=== PATIENT | male | born 1960 | race Caucasian/White ===

== ENCOUNTER 2017-05-06 12:33 | Emergency (ER) | payer MEDICAID ==
[2017-05-06 14:38] VITALS: BP 125/76
== END 2017-05-06 14:38 | disposition home or self-care (01) ==
LOC: ED 12:33
DX: M10.072 Idiopathic gout, left ankle and foot (principal); J45.901 Unspecified asthma with (acute) exacerbation; I10 Essential (primary) hypertension
CPT/HCPCS: J7512

== ENCOUNTER 2017-11-28 09:35 | Emergency (ER) | payer MEDICAID ==
[~2017-11-28] VITALS: Ht 162.6 cm; Wt 73.5 kg
[2017-11-28 09:39] VITALS: Ht 162.6 cm; Wt 73.5 kg
[2017-11-28 10:39] VITALS: BP 161/91
== END 2017-11-28 10:39 | disposition home or self-care (01) ==
LOC: ED 09:35
DX: M25.522 Pain in left elbow (principal); I10 Essential (primary) hypertension
CPT/HCPCS: J1885

== ENCOUNTER 2018-10-01 11:20 | Emergency (ER) | payer MEDICAID ==
[~2018-10-01] VITALS: Ht 157.5 cm; Wt 73.9 kg
[2018-10-01 11:31] VITALS: Ht 157.5 cm; Wt 73.9 kg
[2018-10-01 14:27] VITALS: BP 126/84
== END 2018-10-01 14:27 | disposition home or self-care (01) ==
LOC: ED 11:20
DX: J45.901 Unspecified asthma with (acute) exacerbation (principal); M10.9 Gout, unspecified; I10 Essential (primary) hypertension
CPT/HCPCS: J7512; J7613; J7644; Q0092

== ENCOUNTER 2018-10-28 12:58 | Emergency (ER) | payer MEDICAID ==
[~2018-10-28] VITALS: Ht 162.6 cm; Wt 73.5 kg
[2018-10-28 13:41] VITALS: Ht 162.6 cm; Wt 73.5 kg
[2018-10-28 15:13] VITALS: BP 134/77
== END 2018-10-28 15:14 | disposition home or self-care (01) ==
LOC: ED 12:58
DX: J45.901 Unspecified asthma with (acute) exacerbation (principal); I10 Essential (primary) hypertension; M10.9 Gout, unspecified
CPT/HCPCS: J0171; J7512; J7613; J7644

== ENCOUNTER 2018-12-01 13:38 | Emergency (ER) | payer MEDICAID ==
[~2018-12-01] VITALS: Ht 160 cm; Wt 74.8 kg
[2018-12-01 13:54] VITALS: Ht 160 cm; Wt 74.8 kg
[2018-12-01 15:19] VITALS: BP 145/86
== END 2018-12-01 15:19 | disposition home or self-care (01) ==
LOC: ED 13:38
DX: J45.901 Unspecified asthma with (acute) exacerbation (principal); I10 Essential (primary) hypertension
CPT/HCPCS: J7512; J7613; J7644

== ENCOUNTER 2018-12-13 12:18 | Emergency (ER) | payer MEDICAID ==
[~2018-12-13] VITALS: Ht 162.6 cm; Wt 76.7 kg
[2018-12-13 12:45] VITALS: BP 159/97; Ht 162.6 cm; Wt 76.7 kg
== END 2018-12-13 14:05 | disposition home or self-care (01) ==
LOC: ED 12:18
DX: J45.901 Unspecified asthma with (acute) exacerbation (principal); I10 Essential (primary) hypertension
CPT/HCPCS: J7512; J7613; J7644

== ENCOUNTER 2018-12-31 10:32 | Emergency (ER) | payer MEDICAID ==
[~2018-12-31] VITALS: Ht 160 cm; Wt 70.8 kg
[2018-12-31 10:39] VITALS: Ht 160 cm; Wt 70.8 kg
[2018-12-31 13:38] VITALS: BP 134/80
== END 2018-12-31 13:38 | disposition home or self-care (01) ==
LOC: ED 10:32
DX: J45.901 Unspecified asthma with (acute) exacerbation (principal); I10 Essential (primary) hypertension; M10.9 Gout, unspecified
CPT/HCPCS: 94150; J2930; J7613; J7644

== ENCOUNTER 2019-01-24 13:59 | Emergency (ER) | payer MEDICAID ==
[~2019-01-24] VITALS: Ht 162.6 cm; Wt 81.0 kg
[2019-01-24 14:21] VITALS: BP 155/81; Ht 162.6 cm; Wt 81.0 kg
== END 2019-01-24 15:10 | disposition home or self-care (01) ==
LOC: ED 13:59
DX: J45.901 Unspecified asthma with (acute) exacerbation (principal); I10 Essential (primary) hypertension
CPT/HCPCS: J7613; J7644

== ENCOUNTER 2019-01-31 10:21 | Inpatient (IN) | payer MEDICAID ==
[~2019-01-31] VITALS: Ht 160 cm; Wt 75.4 kg
[2019-01-31 10:25] VITALS: Ht 160 cm; Wt 75.4 kg
[2019-01-31 12:56] LABS: CALCIUM 8.9 mg/dL (8.5-10.1); CARBON DIOXIDE 28.3 mmol/L (21-32); CHLORIDE SERUM 101 mmol/L (98-107); CREATININE SERUM 0.8 mg/dL (0.7-1.3); GFR1 > 60 mL/min; GLUCOSE SERUM 128 mg/dL (74-106); SODIUM SERUM 138 mmol/L (136-145)
[2019-01-31 13:00] LABS: ALBUMIN 4.1 g/dL (3.4-5.0); ALKALINE PHOSPHATASE 83 U/L (46-116); ALT/SGPT 107 U/L (16-63); AST/SGOT 59 U/L (15-37); BILIRUBIN TOTAL 0.8 mg/dL (0.20-1.00); TOTAL PROTEIN, SERUM 7.6 g/dL (6.4-8.2)
[2019-01-31 13:39] LABS: PLATELET COUNT 272 x10^3mcL (130-400); RED CELL DISTRIBUTION WIDTH 13.4 % (11.5-14.5)
[2019-01-31 15:51] LABS: MAGNESIUM 2.3 mg/dL (1.8-2.4); PHOSPHOROUS 2.8 mg/dL (2.5-4.9)
[2019-01-31 15:52] LABS: CHOLESTEROL/HDL RATIO 3.4
[2019-01-31 16:25] VITALS: BP 146/83
[2019-01-31 16:55] VITALS: BP 142/81
[2019-01-31 20:55] VITALS: BP 136/81
[2019-01-31 22:32] LABS: microscopic required? NO
[2019-01-31 22:43] LABS: UA SPECIFIC GRAVITY 1.025 (1.005-1.035); urine erythrocyte NEGATIVE (NEGATIVE)
[2019-02-01 06:24] VITALS: BP 108/63
[2019-02-01 06:44] LABS: PLATELET COUNT 265 x10^3mcL (130-400); RED CELL DISTRIBUTION WIDTH 13.5 % (11.5-14.5)
[2019-02-01 06:53] LABS: BASOPHIL % 0 % (0-2)
[2019-02-01 07:00] LABS: CALCIUM 8.5 mg/dL (8.5-10.1); CARBON DIOXIDE 25.7 mmol/L (21-32); CHLORIDE SERUM 103 mmol/L (98-107); CREATININE SERUM 0.6 mg/dL (0.7-1.3); GFR1 > 60 mL/min; GLUCOSE SERUM 145 mg/dL (74-106); POTASSIUM SERUM 4.4 mmol/L (3.5-5.1); SODIUM SERUM 138 mmol/L (136-145)
[2019-02-01 08:08] VITALS: BP 144/77
[2019-02-01] MEDS ORDERED: SYMBICORT1 AE2 INH (12:04)
[2019-02-01] MEDS ORDERED: MEDDP PO (12:16)
[2019-02-01] MEDS ORDERED: COMINH INH (12:16)
[2019-02-01 12:23] VITALS: BP 115/70
[2019-02-01 13:25] VITALS: BP 115/70
== END 2019-02-01 14:10 | disposition home or self-care (01) | DRG 141 ==
LOC: ED 10:21 → DU 15:07
PROVIDERS: Emergency Medicine; ADMIT Internal Medicine
DX: J45.901 Unspecified asthma with (acute) exacerbation (principal); E87.2 Acidosis; R09.02 Hypoxemia; R73.03 Prediabetes; I10 Essential (primary) hypertension; E78.5 Hyperlipidemia, unspecified; R74.0 Nonspecific elevation of levels of transaminase and lactic acid dehydrogenase [LDH]; Z68.29 Body mass index [BMI] 29.0-29.9, adult; Z87.891 Personal history of nicotine dependence
CPT/HCPCS: 36600; 82962; 94150; J1644; J1956; J2920; J2930; J7030; J7613; J7620; J7626; J7644; Q0092

== ENCOUNTER 2019-03-01 16:27 | Emergency (ER) | payer MEDICAID ==
[~2019-03-01] VITALS: Ht 160 cm; Wt 75.7 kg
[~2019-03-01 16:27] MED LIST: COMINH INH; MEDDP PO; SYMBICORT1 AE2 INH
[2019-03-01 16:35] VITALS: Ht 160 cm; Wt 75.7 kg
[2019-03-01 19:23] VITALS: BP 151/92
== END 2019-03-01 19:23 | disposition home or self-care (01) ==
LOC: ED 16:27
DX: J45.901 Unspecified asthma with (acute) exacerbation (principal); I10 Essential (primary) hypertension; M10.9 Gout, unspecified
CPT/HCPCS: J2930; J7613; J7644

== ENCOUNTER 2019-04-01 12:11 | Emergency (ER) | payer MEDICAID ==
[~2019-04-01] VITALS: Ht 157.5 cm; Wt 77.6 kg
[2019-04-01 12:17] VITALS: Ht 157.5 cm; Wt 77.6 kg
[2019-04-01 13:59] VITALS: BP 152/90
== END 2019-04-01 13:59 | disposition home or self-care (01) ==
LOC: ED 12:11
DX: J45.901 Unspecified asthma with (acute) exacerbation (principal); I10 Essential (primary) hypertension
CPT/HCPCS: J2930; J7613; J7644

== ENCOUNTER 2019-05-19 12:37 | Emergency (ER) | payer MEDICAID ==
[~2019-05-19] VITALS: Ht 160 cm; Wt 76.2 kg
[2019-05-19 12:47] VITALS: Ht 160 cm; Wt 76.2 kg
[2019-05-19 16:35] LABS: AMPHETAMINE QUAL UR NONE DETECTED (See below)
[2019-05-19 17:04] VITALS: BP 115/74
== END 2019-05-19 17:04 | disposition home or self-care (01) ==
LOC: ED 12:37
PROVIDERS: Emergency Medicine
DX: J45.901 Unspecified asthma with (acute) exacerbation (principal)
CPT/HCPCS: 36415; 36600; 82962; J7512; J7613; J7644; Q0092

== ENCOUNTER 2019-10-12 20:02 | Emergency (ER) | payer SELFPAY ==
[~2019-10-12] VITALS: Ht 160 cm; Wt 75.7 kg
[2019-10-12 20:07] VITALS: Ht 160 cm; Wt 75.7 kg
[2019-10-13 00:07] VITALS: BP 140/69
== END 2019-10-13 00:07 | disposition home or self-care (01) ==
LOC: ED 20:02
DX: J45.901 Unspecified asthma with (acute) exacerbation (principal); I10 Essential (primary) hypertension
CPT/HCPCS: 82962; J7512; J7613; J7644